=== PATIENT | male | born 1940 | race Caucasian/White ===

== ENCOUNTER 2017-06-17 19:08 | Inpatient (IN) | payer MEDICARE ==
[~2017-06-17] VITALS: Ht 180.3 cm; Wt 79.4 kg
[~2017-06-17 19:08] MED LIST: ATENOLOL PO; FINASTERIDE PO; HYDROCHLOROTHIA25 MG PO; PRIMIDONE PO; SIMVASTATIN PO; VALSARTAN PO; WARFARIN PO
[2017-06-17] MEDS ORDERED: ACETAMINOPHEN 325 MG TAB ONE (19:56)
[2017-06-17] MEDS ORDERED: ACETAMINOPHEN 325 MG TAB PO ONE (20:00)
[2017-06-17 20:28] LABS: BASOPHILS % 0.1 % (0.0-1.0); EOSINOPHILS % 0.1 % (0.0-6.0); HEMATOCRIT 45.1 % (38.2-49.6); HEMOGLOBIN 14.9 g/dL (14.0-18.0); LYMPHOCYTES # (AUTO) 0.2 (1.0-3.2); LYMPHOCYTES % 2.9 % (18.0-39.1); MEAN CORPUSCULAR HEMOGLOBIN 29.7 pg (28-32); MONOCYTES # (AUTO) 0.4 (0.2-0.8); MONOCYTES % 5.2 % (4.4-11.3); NEUTROPHILS # (AUTO) 6.5 (2.1-6.9); NEUTROPHILS % 91.3 % (38.7-80.0); PLATELET COUNT 108 x10e3/uL (140-360); RED BLOOD COUNT 5.01 x10e6/uL (4.3-5.7); RED CELL DISTRIBUTION WIDTH 14.6 % (11.7-14.4)
[2017-06-17 20:29] LABS: CLARITY,URINE CLEAR (CLEAR); COLOR,URINE YELLOW (YELLOW); KETONES,URINE NEGATIVE (NEGATIVE); LEUKOCYTE ESTERASE ,URINE NEGATIVE (NEGATIVE); NITRITE,URINE NEGATIVE (NEGATIVE); URINE UROBILINOGEN 1 mg/dL (0.2 - 1)
[2017-06-17 20:31] LABS: BILIRUBIN,URINE 1+ (NEGATIVE); PROTEIN,URINE DIPSTICK 1+ (NEGATIVE)
[2017-06-17 20:35] LABS: BACTERIA,URINE RARE /HPF; MUCUS,URINE FEW (RARE); WBC,URINE (MAN) 0-5 /HPF (0-5)
[2017-06-17] MEDS ORDERED: SODIUM CHLORIDE 0.9% 1000ML 1,000 ML IV ONE (20:45)
[2017-06-17 20:47] LABS: ALANINE AMINOTRANSFERASE 28 IU/L (0-55); ALBUMIN 3.9 g/dL (3.5-5.0); ALBUMIN/GLOBULIN RATIO 1.1 (0.8-2.0); ALKALINE PHOSPHATASE 53 IU/L (40-150); AMYLASE 269 U/L (25-125); ANION GAP 14.8 mmol/L (8-16); BLOOD UREA NITROGEN 24 mg/dL (7-26); BUN/CREATININE RATIO 26 (6-25); CALCIUM 9.2 mg/dL (8.4-10.2); CARBON DIOXIDE 34 mmol/L (22-29); CHLORIDE 96 mmol/L (98-107); CREATINE KINASE 175 IU/L (30-200); CREATININE, SERUM 0.91 mg/dL (0.72-1.25); EST GLOMERULAR FILTRATION RATE > 60 ML/MIN (60-); GLUCOSE 156 mg/dL (74-118); LIPASE 413 U/L (8-78); POTASSIUM 3.8 mmol/L (3.5-5.1); SODIUM 141 mmol/L (136-145)
--- NOTE | 2017-06-17 20:50 | Diagnostic Imaging Report ---
EXAMINATION: PA and lateral views of the chest. COMPARISON: None CLINICAL HISTORY: Vomiting, weakness, shortness of breath DISCUSSION: Lines/tubes: Single lead left upper chest cardiac device, with the distal tip projecting in the right ventricle Lungs: Lungs are well inflated. Eventration of the left hemidiaphragm. Bilateral mild central interstitial opacities extending from the prem. Left lower lobe airspace opacity. Pleura: Blunting of the right lateral and posterior as well as left posterior costophrenic sulci. Heart and mediastinum: Enlarged cardiac silhouette Central pulmonary venous congestion Bones and soft tissues: No acute bony abnormalities. Degenerative changes in the thoracic spine IMPRESSION: 1. Enlarged cardiac silhouette with central pulmonary venous congestion and mild perihilar interstitial edema. Findings likely represent decompensated CHF. 2. Bilateral small pleural effusions. An airspace opacity in the left lower lobe may reflect associated atelectasis, which may be due to the effusion or the diaphragmatic eventration, however, pneumonia could be considered in the appropriate clinical setting. Signed by: Dr. Aidan Pascal M.D. on 06/17/2017 8:47 PM
[2017-06-17 20:54] LABS: TROPONIN I 0.038 ng/mL (0-0.300)
[2017-06-17] MEDS ORDERED: CEFTRIAXONE SOD 1 GM VIAL IV STA (20:55)
[2017-06-17] MEDS ORDERED: AZITHROMYCIN 500MG/NS 250 ML 250 ML IV STA (20:55)
[2017-06-17 21:21] LABS: HYPOCHROMASIA SLIGHT; LYMPHOCYTES % (MANUAL) 3 % (19-48); MONOCYTES % (MANUAL) 6 % (3.4-9.0); NEUTROPHILS % (MANUAL) 91 % (40-74); PLATELET ESTIMATE SLIGHTLY DECREASED; RBC MORPHOLOGY COMMENT NORMAL
--- NOTE | 2017-06-17 21:54 | Diagnostic Imaging Report ---
EXAM: CT CHEST WO DATE: 06/17/2017 8:53 PM INDICATION: Evaluate chest x-ray findings, pneumonia COMPARISON: None TECHNIQUE: Multidetector CT scanning of the chest was performed. Coronal and sagittal multiplanar reformations were obtained. IV Contrast: None FINDINGS: LUNGS AND PLEURA: Calcified right basilar pleural thickening, which may be sequelae of asbestos or prior hemothorax/empyema. Mild bibasilar atelectasis/scarring. Nonspecific 3 mm right lower lobe nodule on image 79. HEART, MEDIASTINUM, VESSELS: Cardiomegaly. Intact sternotomy wires. Left chest wall single lead right ventricular pacer. Coronary artery and aortic atherosclerotic calcifications. Main pulmonary artery is enlarged, 3.6 cm indicative of pulmonary arterial hypertension. No suspicious adenopathy. UPPER ABDOMEN: Mildly dilated fluid-filled esophagus with marked diffuse wall thickening of the mid to distal portion. Partially imaged bilateral renal cystic lesions, incompletely characterized. Prominent perisplenic vessels or varices, poorly assessed without IV contrast. MUSCULOSKELETAL: Multilevel degenerative changes. IMPRESSION: 1. No evidence of pneumonia. 2. Marked mid to distal esophageal wall thickening which may be related to esophagitis. Correlate with direct visualization to exclude neoplasm. Signed by: Dr Rosalie Clifford MD on 06/17/2017 9:50 PM
--- NOTE | 2017-06-18 01:10 | Diagnostic Imaging Report ---
EXAM: US GALLBLADDER DATE: 06/18/2017 12:00 AM INDICATION: , Abdominal pain COMPARISON: None TECHNIQUE: Transverse and longitudinal gardner scale and color doppler sonographic images of the upper abdomen/gallbladder were obtained. FINDINGS: LIVER 16.8 cm in the right midclavicular line, borderline enlarged. Normal echogenicity, normal contour, no masses. GALLBLADDER No stones, sludge, wall-thickening or pericholecystic fluid. Negative sonographic Lott's sign. BILE DUCTS No intra nor extra-hepatic biliary dilation. Common bile duct measures 0.5 cm PANCREAS: Not visualized due to bowel gas. RIGHT KIDNEY: 11.0 cm Echogenicity: Normal Collecting System: No hydronephrosis Stones: None Cyst/Mass: None VESSELS: Aorta: Not visualized due to bowel gas Inferior Vena Cava: Visualized portions are normal Main Portal Vein: 1.0 cm, normal size with hepatopetal flow. FREE FLUID: None IMPRESSION: No acute sonographic abnormality. No cholelithiasis or evidence of acute cholecystitis. Signed by: Dr Rosalie Clifford MD on 06/18/2017 1:06 AM
[2017-06-18] MEDS ORDERED: ONDANSETRON HCL INJ 2 MG/ML VIAL IV PRN (01:30)
[2017-06-18] MEDS ORDERED: PIPER-TAZ 3.375 GM/50 ML BAG IV SCH (01:30)
[2017-06-18] MEDS ORDERED: HYDROMORPHONE 1MG/1ML INJ IV PRN (01:30)
[2017-06-18] MEDS: SODIUM CHLORIDE 0.9% 1000ML 1,000 ML IV SCH ×4 (02:20→16:51)
[2017-06-18] MEDS: METRONIDAZOLE 500MG/NS 100ML 100 ML IV SCH ×4 (02:20→18:00)
[2017-06-18] MEDS ORDERED: ACETAMINOPHEN 325 MG TAB PO PRN (02:30)
--- NOTE | 2017-06-18 02:47 | Diagnostic Imaging Report ---
EXAM: CT ABDOMEN/PELVIS W DATE: 06/18/2017 1:30 AM INDICATION: Nausea, vomiting. \S\PANCREATITIS PROTOCOL \[id number] \S\0204 \S\Y COMPARISON: Recent CT chest 06/17/2013, ultrasound gallbladder 06/18/2017 TECHNIQUE: The abdomen and pelvis were scanned using a multidetector helical scanner. Coronal and sagittal reformations were obtained. Routine protocol performed. IV Contrast: 100. ml Isovue 370 FINDINGS: LOWER THORAX: See chest CT from 06/17/2017. LIVER/BILIARY: No masses. No ductal dilatation. GALLBLADDER: Unremarkable. Normal same-day ultrasound gallbladder. SPLEEN: Unremarkable PANCREAS: Questionable 4 to 5 mm cystic lesion (side branch IPMN) of the pancreatic tail on coronal image 50 but no delineated on axial view. Otherwise no masses, ductal dilation or inflammatory changes. ADRENALS: No nodules KIDNEYS: Symmetric perfusion. Multiple bilateral renal cysts. No hydronephrosis. GI TRACT: No distention, wall thickening or evidence of obstruction. 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 PERITONEUM/RETROPERITONEUM: No free air or fluid LYMPH NODES: No lymphadenopathy REPRODUCTIVE ORGANS/BLADDER: Unremarkable SOFT TISSUES: Small fat-containing direct left inguinal hernia. BONES: Multilevel degenerative changes. Several subtle lucent areas within the ribs without cortical destruction, possibly demineralization. IMPRESSION: 1. No evidence of pancreatitis or other acute abnormality. 2. Severe atherosclerotic changes with bilateral common iliac artery aneurysms/dissections. Signed by: Dr Rosalie Clifford MD on 06/18/2017 2:43 AM
[2017-06-18] MEDS ORDERED: SODIUM CHLORIDE 0.9% 50ML 50 ML ONE (03:22)
[2017-06-18] MEDS ORDERED: IOPAMIDOL 370 MG/ML 200 ML INFUS..BTL INJ ONE (03:22)
[2017-06-18 03:49] VITALS: BP 133/71
[2017-06-18] MEDS ORDERED: GUAIFENESIN 200 MG/10 ML UDC PO ONE ×2 (04:15→04:30)
[2017-06-18 04:59] VITALS: BP 124/64
[2017-06-18] MEDS: PIPER-TAZ 3.375 GM 50 ML IV SCH ×3 (05:23→22:19)
[2017-06-18 07:50] VITALS: BP 135/75
[2017-06-18] MEDS: PRIMIDONE 50 MG TAB PO SCH (08:56)
[2017-06-18] MEDS: ATENOLOL 50 MG TAB PO SCH (08:56)
[2017-06-18] MEDS: VALSARTAN 160 MG TAB PO SCH (08:56)
--- NOTE | 2017-06-18 11:30 | History and Physical ---
CLINICAL HISTORY: This is a 77-year-old white man admitted via the emergency room because of nausea and vomiting of 24-hour duration with workup showing possible recurrent esophageal stricture and possible pancreatitis with lipase of 413 and elevated amylase of 269. This patient has been previously seen by Dr. Valentino Qiu because of esophageal stricture dating back to 2016. Has history of colonic polyps, internal hemorrhoids. He has history of pacemaker but no other previous heart disease. CT scan of the abdomen did not show pancreatitis, but did show atherosclerotic peripheral vascular disease. Ultrasound of gallbladder was negative. White count was 7000. He is being admitted for further evaluation and treatment. PAST MEDICAL HISTORY: Is otherwise noncontributory. He does have hypertension, hypercholesterolemia and benign prostatic hypertrophy. MEDICATIONS AT HOME: Include 1. Hydrochlorothiazide 12.5 mg p.o. daily. 2. Atenolol 25 mg daily. 3. Finasteride 5 mg daily. 4. Primidone 25 mg daily for shakes. 5. Simvastatin 20 mg daily. 6. Valsartan 160 mg daily. 7. Coumadin 7.5 mg p.o. daily. It is not clear whether he has history of atrial fibrillation. No EKG is available. PERSONAL AND SOCIAL HISTORY: Denies smoking, drinking. 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 FAMILY HISTORY: Mother from old age at 88. Father from coronary artery disease at 63. REVIEW OF SYSTEMS: Noncontributory. PHYSICAL EXAMINATION GENERAL: He is alert, coherent. Speech is somewhat slow. VITAL SIGNS: Are stable. CARDIAC: Jugular veins are not distended. S1 and S2 are regular. There is no appreciable murmur. LUNGS: Clear. ABDOMEN: Soft. Bowel sounds are present. EXTREMITIES: Show no clubbing, cyanosis or edema. IMPRESSION 1. Nausea and vomiting of undetermined etiology. Consider esophageal stricture with a recurrent computerized tomography that did show thickening of this area, but did not show any pancreatitis. 2. Possible pancreatitis with increased amylase, lipase in the range of 269 and 413 respectively. 3. History of pacemaker. 4. Atherosclerotic vascular disease by computerized tomography scan. 5. Hypertension. 6. Hyperlipidemia. 7. Benign prostatic hypertrophy. 8. Anticoagulation possible for atrial fibrillation. 9. Chronic shaking that is possibly due to Parkinson's. RECOMMENDATIONS: Review EKG. Consider echocardiogram prior to GI evaluation with Dr. Valentino Qiu. Withhold Coumadin for the time being. Job#: [id number] cc:TREVIN LEE MD cc:VALENTINO QIU MD
[2017-06-18 12:00] VITALS: BP 139/70
[2017-06-18 15:29] LABS: AMYLASE 54 U/L (25-125); LIPASE 18 U/L (8-78)
[2017-06-18 16:52] VITALS: BP 147/75
[2017-06-18] MEDS ORDERED: WARFARIN SOD 2.5 MG TAB PO SCH (17:00)
--- NOTE | 2017-06-18 19:15 | Cardiology Report ---
DATE OF STUDY: June 18, 2017 ECHOCARDIOGRAM M-MODE: Left ventricular contractility and left ventricular hypertrophy dominated the left atrium. Aortic sclerosis. Sclerosis of mitral valve leaflet. Normal tricuspid valves. No pericardial effusion. SECTOR SCAN: Dilated left atrium. Left ventricular hypertrophy. Normal ejection fraction estimated at 65%. Aortic valve is mildly sclerotic. Mitral annulus is slightly sclerotic. Normal tricuspid valves. No pericardial effusion. CARDIAC DOPPLER STUDY WITH COLOR: One to 2+ mitral and tricuspid regurgitation. Pulmonary artery systolic pressure estimated at 51 mmHg. CONCLUSIONS: 1. Left ventricular hypertrophy with ejection fraction of approximately 65%. 2. Mild to moderate mitral regurgitation with dilated left atrium. 3. Mild to moderate tricuspid regurgitation with mild pulmonary hypertension. Pulmonary artery systolic pressure estimated at 51 mmHg. 4. Aortic sclerosis without stenosis. 5. Pacemaker present. Job#: [id number] cc:TREVIN LEE MD
[2017-06-18 20:00] VITALS: BP 131/77
[2017-06-18] MEDS: SIMVASTATIN 20 MG TAB PO SCH (22:19)
[2017-06-18] MEDS: FINASTERIDE 5 MG TAB PO SCH (22:19)
[2017-06-19] VITALS: BP 153/86
[2017-06-19] MEDS: METRONIDAZOLE 500MG/NS 100ML 100 ML IV SCH ×4 (00:25→17:02)
[2017-06-19] MEDS: SODIUM CHLORIDE 0.9% 1000ML 1,000 ML IV SCH ×3 (00:25→17:02)
[2017-06-19] MEDS: PIPER-TAZ 3.375 GM 50 ML IV SCH ×3 (06:00→23:00)
[2017-06-19 06:54] LABS: BASOPHILS % 0.5 % (0.0-1.0); HEMATOCRIT 40.8 % (38.2-49.6); HEMOGLOBIN 13.2 g/dL (14.0-18.0); LYMPHOCYTES # (AUTO) 0.6 (1.0-3.2); LYMPHOCYTES % 15.9 % (18.0-39.1); MEAN CORPUSCULAR HEMOGLOBIN 29.3 pg (28-32); MEAN CORPUSCULAR HGB CONC 32.4 g/dL (31-35); MEAN CORPUSCULAR VOLUME 90.5 fL (81-99); MONOCYTES # (AUTO) 0.4 (0.2-0.8); MONOCYTES % 10.4 % (4.4-11.3); NEUTROPHILS # (AUTO) 2.9 (2.1-6.9); NEUTROPHILS % 72.5 % (38.7-80.0); PLATELET COUNT 76 x10e3/uL (140-360); RED BLOOD COUNT 4.51 x10e6/uL (4.3-5.7); RED CELL DISTRIBUTION WIDTH 14.6 % (11.7-14.4)
[2017-06-19 07:30] LABS: ALANINE AMINOTRANSFERASE 33 IU/L (0-55); ALBUMIN/GLOBULIN RATIO 1.1 (0.8-2.0); ALKALINE PHOSPHATASE 34 IU/L (40-150); AMYLASE 90 U/L (25-125); ANION GAP 12.3 mmol/L (8-16); BLOOD UREA NITROGEN 20 mg/dL (7-26); BUN/CREATININE RATIO 21 (6-25); CALCIUM 8.1 mg/dL (8.4-10.2); CARBON DIOXIDE 28 mmol/L (22-29); CHLORIDE 103 mmol/L (98-107); CREATININE, SERUM 0.97 mg/dL (0.72-1.25); EST GLOMERULAR FILTRATION RATE > 60 ML/MIN (60-); GLUCOSE 97 mg/dL (74-118); LIPASE 87 U/L (8-78); POTASSIUM 3.3 mmol/L (3.5-5.1); SODIUM 140 mmol/L (136-145)
[2017-06-19 07:54] VITALS: BP 144/66
[2017-06-19] MEDS: PRIMIDONE 50 MG TAB PO SCH (09:00)
[2017-06-19] MEDS: VALSARTAN 160 MG TAB PO SCH (09:00)
[2017-06-19] MEDS: ATENOLOL 50 MG TAB PO SCH (09:00)
[2017-06-19 11:19] VITALS: BP 168/83
[2017-06-19 13:11] LABS: INR 8.58
[2017-06-19 13:12] LABS: PROTHROMBIN TIME > 100.0 seconds (11.9-14.5)
[2017-06-19] MEDS ORDERED: POTASSIUM CHLORIDE 20 MEQ TAB CR PO STA (15:32)
[2017-06-19 16:00] VITALS: BP 144/84
[2017-06-19 20:00] VITALS: BP 155/71
[2017-06-19] MEDS: SIMVASTATIN 20 MG TAB PO SCH (22:59)
[2017-06-19] MEDS: FINASTERIDE 5 MG TAB PO SCH (22:59)
[2017-06-20] VITALS: BP 144/74
[2017-06-20] MEDS: METRONIDAZOLE 500MG/NS 100ML 100 ML IV SCH ×4 (00:45→18:15)
[2017-06-20] MEDS: SODIUM CHLORIDE 0.9% 1000ML 1,000 ML IV SCH ×3 (00:51→16:51)
[2017-06-20 04:00] VITALS: BP 155/78
[2017-06-20] MEDS: PIPER-TAZ 3.375 GM 50 ML IV SCH ×3 (05:31→22:01)
[2017-06-20 07:45] LABS: INR 5.24
[2017-06-20 07:54] VITALS: BP 163/87
[2017-06-20] MEDS: VALSARTAN 160 MG TAB PO SCH (09:24)
[2017-06-20] MEDS: PRIMIDONE 50 MG TAB PO SCH (09:24)
[2017-06-20] MEDS: ATENOLOL 50 MG TAB PO SCH (09:25)
[2017-06-20 11:47] VITALS: BP 149/88
--- NOTE | 2017-06-20 12:31 | Consultation ---
DATE OF CONSULTATION: HEMATOLOGY CONSULTATION A 77-year-old white male admitted to [facility] through the emergency room because of nausea, vomiting and diarrhea. At the time of interview, the patient's symptoms resolved. He was also evaluated by Dr. Valentino Eden. Patient did have a history of esophageal stricture, but it appears not to be the case at this time. CT scan of his chest did show some esophageal thickening. He is not being scoped by Dr. Eden because of an elevated INRI, and now today still at 8. The Coumadin is currently on hold of course. PAST MEDICAL HISTORY: As per history and physical by Dr. Daniel Malik. This includes hypertension, benign prostatic hypertrophy, esophageal stricture, pacemaker insertion, questionable history of atrial fibrillation, etc. PHYSICAL EXAMINATION GENERAL: Reveals an elderly white man who seems alert and cooperative. VITAL SIGNS: Stable. HEENT: Unremarkable. Hair is unkempt. NECK: Supple. No JVD. CHEST: Lungs clear. HEART: Sounds distant. ABDOMEN: Soft. NEUROLOGICAL: Normal. EXTREMITIES: No cyanosis, clubbing or edema. LABORATORY: Platelet count today is 76,000. CT of the abdomen showed no evidence of cirrhosis. Normal liver. Gallbladder ultrasound was normal. ASSESSMENT AND PLAN: Thrombocytopenia, etiology unclear at this time. Patient might have chronic idiopathic thrombocytopenia purpura. Since there is no evidence of bleeding, will observe him for now, and see if we can get a hold of old records from his primary care physician or from other hospital. Thank you very much, Dr. Malik, for asking me to see this gentleman. I will follow him with you. Job#: [id number] JEANETTE ROD
[2017-06-20 15:53] VITALS: BP 181/93
[2017-06-20] MEDS ORDERED: ZOLPIDEM TARTRATE 5 MG TAB PO PRN (17:45)
[2017-06-20] MEDS ORDERED: MAGNESIUM HYDROXIDE 30 ML UDC PO PRN (17:45)
[2017-06-20] MEDS ORDERED: MAGNESIUM/ALUMINUM/SIMETHICONE 30 ML UDC PO PRN (17:45)
[2017-06-20] MEDS ORDERED: MECLIZINE HCL 12.5 MG TAB PO PRN (17:45)
[2017-06-20] MEDS: CLONIDINE HCL 0.1 MG TAB PO PRN (18:10)
[2017-06-20 19:15] VITALS: BP 171/87
[2017-06-20] MEDS: FINASTERIDE 5 MG TAB PO SCH (20:50)
[2017-06-20] MEDS: SIMVASTATIN 20 MG TAB PO SCH (20:50)
[2017-06-21 00:05] VITALS: BP 199/95
[2017-06-21] MEDS: CLONIDINE HCL 0.1 MG TAB PO PRN ×3 (00:17→11:45)
[2017-06-21] MEDS: METRONIDAZOLE 500MG/NS 100ML 100 ML IV SCH ×4 (00:27→17:45)
[2017-06-21] MEDS: SODIUM CHLORIDE 0.9% 1000ML 1,000 ML IV SCH ×3 (00:51→08:51)
[2017-06-21] MEDS ORDERED: ATENOLOL 50 MG TAB PO ONE (04:00)
[2017-06-21 05:00] VITALS: BP 196/91
[2017-06-21] MEDS: PIPER-TAZ 3.375 GM 50 ML IV SCH ×3 (06:00→21:13)
[2017-06-21 07:34] LABS: BASOPHILS % 0.2 % (0.0-1.0); EOSINOPHILS # (AUTO) 0.1 (0.0-0.4); EOSINOPHILS % 1.3 % (0.0-6.0); HEMATOCRIT 39.5 % (38.2-49.6); HEMOGLOBIN 12.9 g/dL (14.0-18.0); LYMPHOCYTES # (AUTO) 0.8 (1.0-3.2); LYMPHOCYTES % 17.4 % (18.0-39.1); MEAN CORPUSCULAR HEMOGLOBIN 29.7 pg (28-32); MEAN CORPUSCULAR HGB CONC 32.7 g/dL (31-35); MONOCYTES # (AUTO) 0.4 (0.2-0.8); MONOCYTES % 7.8 % (4.4-11.3); NEUTROPHILS # (AUTO) 3.5 (2.1-6.9); NEUTROPHILS % 72.7 % (38.7-80.0); PLATELET COUNT 87 x10e3/uL (140-360); RED BLOOD COUNT 4.34 x10e6/uL (4.3-5.7); RED CELL DISTRIBUTION WIDTH 14.8 % (11.7-14.4)
[2017-06-21 07:42] VITALS: BP 197/93
[2017-06-21 08:04] LABS: AMYLASE 37 U/L (25-125); LIPASE 21 U/L (8-78)
[2017-06-21] MEDS: VALSARTAN 160 MG TAB PO SCH (08:17)
[2017-06-21] MEDS: PRIMIDONE 50 MG TAB PO SCH (08:17)
[2017-06-21] MEDS: ATENOLOL 50 MG TAB PO SCH ×2 (08:18→17:27)
[2017-06-21 08:49] LABS: INR 1.68; PROTHROMBIN TIME 20.7 seconds (11.9-14.5)
[2017-06-21] MEDS ORDERED: ATENOLOL 50 MG TAB PO SCH (09:00)
[2017-06-21 12:04] VITALS: BP 188/96
[2017-06-21] MEDS ORDERED: POTASSIUM CHLORIDE 10 MEQ TABCR PO ONE (14:30)
[2017-06-21 15:59] VITALS: BP 176/87
--- NOTE | 2017-06-21 19:09 | Diagnostic Imaging Report ---
EXAMINATION: Chest, CHEST 2 VIEWS INDICATION: Shortness of breath. COMPARISON: Chest 2 views 06/17/2017 FINDINGS: LINES: Left chest cardiac device with lead projecting over the expected region of the right ventricle. Heart: Normal cardiac silhouette. Vascular: The pulmonary vasculature is within normal limits. Atherosclerotic calcifications of the aortic arch. Mediastinum: No mediastinal, hilar, or axillary mass or lymphadenopathy. Lungs: No parenchymal mass. Bilateral multifocal airspace opacities. Pleura: Small right pleural effusion. Stable elevation of the left hemidiaphragm. No pneumothorax. Bones: No acute osseous abnormality. Degenerative changes of the thoracic spine. Median sternotomy wires. Soft tissues: Normal. Impression: Bilateral multifocal airspace opacifications may represent a developing pneumonia. Signed by: Dr. Ernie Stout M.D. on 06/21/2017 7:05 PM
[2017-06-21 20:00] VITALS: BP 176/89
[2017-06-21] MEDS: SIMVASTATIN 20 MG TAB PO SCH (21:13)
[2017-06-21] MEDS: FINASTERIDE 5 MG TAB PO SCH (21:13)
[2017-06-22] VITALS: BP 193/95
[2017-06-22] MEDS: CLONIDINE HCL 0.1 MG TAB PO PRN ×2 (00:14→12:20)
[2017-06-22] MEDS: GUAIFENESIN 200 MG/10 ML UDC PO PRN (00:14)
[2017-06-22] MEDS: METRONIDAZOLE 500MG/NS 100ML 100 ML IV SCH ×4 (00:15→18:06)
[2017-06-22 04:00] VITALS: BP 164/81
[2017-06-22] MEDS: PIPER-TAZ 3.375 GM 50 ML IV SCH ×3 (05:56→21:23)
[2017-06-22 07:37] VITALS: BP 174/95
[2017-06-22 07:37] LABS: BASOPHILS % 0.2 % (0.0-1.0); HEMATOCRIT 37.5 % (38.2-49.6); HEMOGLOBIN 11.9 g/dL (14.0-18.0); LYMPHOCYTES # (AUTO) 0.7 (1.0-3.2); LYMPHOCYTES % 14.1 % (18.0-39.1); MEAN CORPUSCULAR HEMOGLOBIN 29.4 pg (28-32); MEAN CORPUSCULAR HGB CONC 31.7 g/dL (31-35); MEAN CORPUSCULAR VOLUME 92.6 fL (81-99); MONOCYTES # (AUTO) 0.5 (0.2-0.8); MONOCYTES % 9.2 % (4.4-11.3); NEUTROPHILS # (AUTO) 3.7 (2.1-6.9); NEUTROPHILS % 75.5 % (38.7-80.0); PLATELET COUNT 82 x10e3/uL (140-360); RED BLOOD COUNT 4.05 x10e6/uL (4.3-5.7); RED CELL DISTRIBUTION WIDTH 14.8 % (11.7-14.4)
[2017-06-22] MEDS: PANTOPRAZOLE SOD 40 MG TABEC PO SCH (07:54)
[2017-06-22 08:13] LABS: INR 1.33; PROTHROMBIN TIME 17.2 seconds (11.9-14.5)
[2017-06-22] MEDS: VALSARTAN 160 MG TAB PO SCH (09:19)
[2017-06-22] MEDS: PRIMIDONE 50 MG TAB PO SCH (09:19)
[2017-06-22] MEDS: ATENOLOL 50 MG TAB PO SCH ×2 (09:19→17:30)
[2017-06-22 12:07] VITALS: BP 170/93
[2017-06-22] MEDS ORDERED: FUROSEMIDE INJ 10 MG/ML 4 ML VIAL IV ONE (15:00)
[2017-06-22] MEDS: ALBUTEROL/IPRATROPIUM 3 ML NEB NEB PRN ×3 (15:55→23:45)
[2017-06-22 15:57] VITALS: BP 179/84
[2017-06-22 20:00] VITALS: BP 154/84
[2017-06-22] MEDS: SIMVASTATIN 20 MG TAB PO SCH (21:23)
[2017-06-22] MEDS: FINASTERIDE 5 MG TAB PO SCH (21:23)
[2017-06-23] VITALS: BP 162/94
[2017-06-23 04:00] VITALS: BP 177/98
[2017-06-23] MEDS: METRONIDAZOLE 500MG/NS 100ML 100 ML IV SCH ×5 (04:37→23:53)
[2017-06-23] MEDS: PIPER-TAZ 3.375 GM 50 ML IV SCH ×3 (05:11→22:40)
[2017-06-23 06:14] VITALS: BP 168/80
[2017-06-23] MEDS: ALBUTEROL/IPRATROPIUM 3 ML NEB NEB PRN (06:50)
[2017-06-23 07:16] LABS: BASOPHILS % 0.2 % (0.0-1.0); HEMATOCRIT 35.4 % (38.2-49.6); HEMOGLOBIN 11.3 g/dL (14.0-18.0); LYMPHOCYTES # (AUTO) 0.7 (1.0-3.2); LYMPHOCYTES % 16.1 % (18.0-39.1); MEAN CORPUSCULAR HEMOGLOBIN 29.4 pg (28-32); MEAN CORPUSCULAR HGB CONC 31.9 g/dL (31-35); MEAN CORPUSCULAR VOLUME 92.2 fL (81-99); MONOCYTES # (AUTO) 0.5 (0.2-0.8); MONOCYTES % 11.3 % (4.4-11.3); NEUTROPHILS # (AUTO) 3.3 (2.1-6.9); NEUTROPHILS % 71.7 % (38.7-80.0); PLATELET COUNT 76 x10e3/uL (140-360); RED BLOOD COUNT 3.84 x10e6/uL (4.3-5.7); RED CELL DISTRIBUTION WIDTH 14.7 % (11.7-14.4)
[2017-06-23] MEDS: PANTOPRAZOLE SOD 40 MG TABEC PO SCH (07:30)
[2017-06-23 07:37] LABS: INR 1.25; PROTHROMBIN TIME 16.4 seconds (11.9-14.5)
[2017-06-23 07:48] LABS: ANION GAP 11.6 mmol/L (8-16); BLOOD UREA NITROGEN 19 mg/dL (7-26); BUN/CREATININE RATIO 22 (6-25); CALCIUM 8.6 mg/dL (8.4-10.2); CARBON DIOXIDE 33 mmol/L (22-29); CHLORIDE 107 mmol/L (98-107); CREATININE, SERUM 0.88 mg/dL (0.72-1.25); EST GLOMERULAR FILTRATION RATE > 60 ML/MIN (60-); GLUCOSE 112 mg/dL (74-118); POTASSIUM 3.6 mmol/L (3.5-5.1); SODIUM 148 mmol/L (136-145)
[2017-06-23 08:00] VITALS: BP 148/76
[2017-06-23] MEDS: PRIMIDONE 50 MG TAB PO SCH (09:00)
[2017-06-23] MEDS: ATENOLOL 50 MG TAB PO SCH ×2 (09:30→17:30)
[2017-06-23] MEDS: VALSARTAN 160 MG TAB PO SCH (09:30)
[2017-06-23] MEDS ORDERED: POTASSIUM CHLORIDE 20 MEQ TAB CR PO STA (10:06)
[2017-06-23] MEDS ORDERED: FUROSEMIDE INJ 10 MG/ML 2 ML VIAL IV ONE (10:15)
[2017-06-23 12:00] VITALS: BP 149/76
[2017-06-23 16:00] VITALS: BP 157/92
[2017-06-23] MEDS ORDERED: LIDOCAINE HCL 2% LOCAL INJ 5 ML SDV VIAL INJ ONE (18:26)
[2017-06-23] MEDS ORDERED: PROPOFOL IV EMULSION 10 MG/ML 50 ML VIAL ONE (18:26)
[2017-06-23] MEDS ORDERED: MIDAZOLAM HCL 2 MG/2 ML VIAL ONE (18:45)
[2017-06-23] MEDS ORDERED: FENTANYL CITRATE/PF 100MCG/2 ML INJ ONE (18:45)
--- NOTE | 2017-06-23 20:48 | Operative Report ---
DATE OF PROCEDURE: June 23, 2017 REFERRING PHYSICIAN: Dr. Daniel Malik. PROCEDURE PERFORMED: Esophagogastroduodenoscopy with biopsy. INDICATIONS FOR PROCEDURE: Thickened esophagus on CT scan. MEDICATION: Patient was done under MAC. Please see anesthesiologist's note. PROCEDURE: With the patient in left lateral decubitus position, flexible fiberoptic Olympus gastroscope was introduced into the esophagus under direct visualization without any difficulty. There was some focal varicosities noted in the cervical esophagus. The distal esophagus simply revealed there was some patchy erythema noted. The scope was then advanced with ease into the stomach and mucosa overlying the antrum and the body revealed some patchy intense erythema and low-grade to moderate edema and biopsies were obtained and sent to stain for H. pylori. Pylorus appeared to be of normal contour and shape. Was intubated with ease and scope was advanced all the way to the 2nd portion of the duodenum. The scope was then withdrawn slowly. Mucosa overlying the proximal 2nd portion and the duodenal bulb appeared to be within normal limits. The scope was then withdrawn back into the stomach and retroflexed and mucosa overlying the fundus and the cardia appeared to be within normal limits. The scope was then straightened out. Stomach was decompressed. The scope was subsequently withdrawn. Patient tolerated the procedure well. IMPRESSION: 1. Focal varicosities, cervical esophagus. 2. Mild distal esophagitis. 3. Gastritis biopsied. Biopsy sent to stain for H. pylori. PLAN: Follow up histology. Initiate Protonix 40 mg 1 p.o. q.a.m. a.c Job#: [id number] cc:DANIEL MALIK MD
[2017-06-23] MEDS: SIMVASTATIN 20 MG TAB PO SCH (21:45)
[2017-06-23] MEDS: FINASTERIDE 5 MG TAB PO SCH (21:55)
[2017-06-24] VITALS (48 sets, daily range): BP systolic 103–161; BP diastolic 64–118
[2017-06-24] MEDS: METRONIDAZOLE 500MG/NS 100ML 100 ML IV SCH ×3 (06:05→19:06)
[2017-06-24 06:27] LABS: BASOPHILS % 0.5 % (0.0-1.0); EOSINOPHILS % 0.2 % (0.0-6.0); HEMATOCRIT 40.2 % (38.2-49.6); HEMOGLOBIN 12.6 g/dL (14.0-18.0); LYMPHOCYTES # (AUTO) 0.7 (1.0-3.2); LYMPHOCYTES % 10.8 % (18.0-39.1); MEAN CORPUSCULAR HEMOGLOBIN 29.9 pg (28-32); MEAN CORPUSCULAR HGB CONC 31.3 g/dL (31-35); MEAN CORPUSCULAR VOLUME 95.3 fL (81-99); MONOCYTES # (AUTO) 0.5 (0.2-0.8); NEUTROPHILS # (AUTO) 5.2 (2.1-6.9); NEUTROPHILS % 79.4 % (38.7-80.0); PLATELET COUNT 126 x10e3/uL (140-360); RED BLOOD COUNT 4.22 x10e6/uL (4.3-5.7); RED CELL DISTRIBUTION WIDTH 14.6 % (11.7-14.4)
[2017-06-24] MEDS: PIPER-TAZ 3.375 GM 50 ML IV SCH ×3 (06:43→21:23)
[2017-06-24] MEDS: PANTOPRAZOLE SOD 40 MG TABEC PO SCH (07:30)
[2017-06-24 07:56] LABS: BASOPHILS % 0.2 % (0.0-1.0); EOSINOPHILS % 0.2 % (0.0-6.0); HEMATOCRIT 39.6 % (38.2-49.6); HEMOGLOBIN 12.2 g/dL (14.0-18.0); LYMPHOCYTES # (AUTO) 0.6 (1.0-3.2); LYMPHOCYTES % 9.8 % (18.0-39.1); MEAN CORPUSCULAR HEMOGLOBIN 29.4 pg (28-32); MEAN CORPUSCULAR HGB CONC 30.8 g/dL (31-35); MEAN CORPUSCULAR VOLUME 95.4 fL (81-99); MONOCYTES # (AUTO) 0.5 (0.2-0.8); MONOCYTES % 8.6 % (4.4-11.3); NEUTROPHILS # (AUTO) 4.8 (2.1-6.9); NEUTROPHILS % 80.4 % (38.7-80.0); PLATELET COUNT 115 x10e3/uL (140-360); RED BLOOD COUNT 4.15 x10e6/uL (4.3-5.7); RED CELL DISTRIBUTION WIDTH 14.6 % (11.7-14.4)
[2017-06-24] MEDS: VALSARTAN 160 MG TAB PO SCH (09:00)
[2017-06-24] MEDS: ATENOLOL 50 MG TAB PO SCH ×2 (09:00→17:00)
[2017-06-24] MEDS: PRIMIDONE 50 MG TAB PO SCH (09:00)
[2017-06-24 09:57] LABS: INR 1.29; PROTHROMBIN TIME 16.8 seconds (11.9-14.5)
[2017-06-24 09:58] LABS: ALANINE AMINOTRANSFERASE 47 IU/L (0-55); ALBUMIN/GLOBULIN RATIO 0.9 (0.8-2.0); ALKALINE PHOSPHATASE 34 IU/L (40-150); ANION GAP 13.2 mmol/L (8-16); BLOOD UREA NITROGEN 22 mg/dL (7-26); BUN/CREATININE RATIO 25 (6-25); CALCIUM 9.1 mg/dL (8.4-10.2); CARBON DIOXIDE 36 mmol/L (22-29); CHLORIDE 104 mmol/L (98-107); CREATININE, SERUM 0.87 mg/dL (0.72-1.25); EST GLOMERULAR FILTRATION RATE > 60 ML/MIN (60-); GLUCOSE 138 mg/dL (74-118); POTASSIUM 4.2 mmol/L (3.5-5.1); SODIUM 149 mmol/L (136-145)
[2017-06-24] MEDS ORDERED: METOPROLOL TARTRATE INJ 1 MG/ML VIAL IV ONE (10:00)
[2017-06-24 10:07] LABS: PARTIAL THROMBOPLASTIN TIME 33.9 seconds (23.8-35.5)
[2017-06-24] MEDS ORDERED: FUROSEMIDE INJ 10 MG/ML 4 ML VIAL IV ONE (10:30)
[2017-06-24 10:46] LABS: ABG PCO2 98 mmHg (41-51); ABG PH 7.24 (7.31-7.41); ABG PO2 107 mmHg (80-105)
[2017-06-24 10:47] LABS: ABG HCO3 42 mmol/L (23-28)
[2017-06-24 12:32] LABS: ABG HCO3 43 mmol/L (23-28); ABG PCO2 96 mmHg (41-51); ABG PH 7.26 (7.31-7.41); ABG PO2 128 mmHg (80-105)
[2017-06-24] MEDS ORDERED: METHYLPREDNISOLONE SOD SUCC 125 MG/2ML VIAL IV SCH (14:00)
[2017-06-24] MEDS ORDERED: FUROSEMIDE INJ 10 MG/ML 2 ML VIAL IV SCH (14:00)
--- NOTE | 2017-06-24 15:07 | Consultation ---
DATE OF CONSULTATION: June 24, 2017 PULMONARY/CRITICAL CARE CONSULTATION CHIEF COMPLAINT: History of COPD and sleep apnea with worsening respiratory failure. HISTORY OF PRESENT ILLNESS: The patient is a 77-year-old man. He follows in the office for obstructive sleep apnea and COPD. His last pulmonary function tests were done in 2013, and showed moderate to severe obstructive lung disease. He uses Dulera at home, as well as a rescue inhaler and a nebulizer as needed. He also had CPAP at home, but the machine broke. Approximately 6 days ago, he came to the hospital complaining of nausea, vomiting and weakness. He was found to have an elevated amylase and lipase. His CT scan showed no pancreatic inflammation. He had subsequently improvement in his symptoms. Two 2 days ago he underwent an upper endoscopy with Dr. Eden. It showed esophagitis and gastritis. The patient also reports difficulty with breathing for the past 3-4 days. It became worse yesterday. An ABG was done and it was found to have an elevated carbon dioxide and a pH of 7.24. He was subsequent placed on BiPAP and transferred to the ICU. A chest x-ray showed bilateral infiltrates suggestive of aspiration. PAST SURGICAL HISTORY 1. Status post coronary artery bypass grafting. 2. Status post pacemaker placement. 3. Status post hiatal hernia surgery. PAST MEDICAL HISTORY 1. COPD as noted above. 2. Obstructive sleep apnea. 3. Hypertension. 4. Atrial fibrillation. The patient was on warfarin. Apparently, this was being monitored through Dr. Hutchinson's office. SOCIAL HISTORY: The patient quit smoking. He is not an active drinker. FAMILY HISTORY: Significant for heart disease, stroke and diabetes. Allergies: THE PATIENT IS ALLERGIC TO TETRACYCLINE. REVIEW OF SYSTEMS: There was a low-grade fever last night. The patient does not complain of any headache or neck pain. He does complain of being thirsty. He has no anterior chest pain. He does note congestion and some cough. Her reports feeling comfortable on the BiPAP without dyspnea. He has no abdominal pain. There is no active nausea or vomiting. He has some leg swelling, but this has improved. PHYSICAL EXAMINATION VITALS: The patient is afebrile. Temperature was 99.8 last night. He is on the BiPAP mask at this time. GENERAL: He has no facial swallowing. NECK: There is no pain. CARDIAC: Reveals a regular rate and rhythm with a normal S1 and S2. There are no murmurs or rubs. LUNGS: Auscultation of the lungs reveals some crackles and some decreased breath sounds. ABDOMEN: Soft and nontender. There is no rebound or guarding. EXTREMITIES: Shows 1+ leg edema. There is no calf tenderness. There is no cyanosis or clubbing. SKIN: Shows no rashes. NEUROLOGICAL: Shows the patient to have some bradykinesia and decreased spontaneous movements, but no focal abnormalities. He is alert and responds appropriately. IMPRESSION 1. [id number] hypercapnic respiratory failure. 2. Aspiration pneumonia with a risk for healthcare-acquired pathogens. 3. Obstructive sleep apnea. 4. Chronic obstructive pulmonary disease. 5. Resolving pancreatitis. 6. Gastritis and esophagitis. It is mild according to his endoscopy. 7. Prior history of coronary artery disease. 8. Prior history of hypertension. 9. History of atrial fibrillation. RECOMMENDATIONS 1. The BiPAP should be refitted because there is some air leak. The inspiratory pressure will be increased slightly as well. 2. Patient will receive Solu-Medrol along with aggressive bronchodilators. 3. Patient's antibiotics should be broaden to cover for healthcare-acquired pathogens. 4. Repeat cultures, including urine antigen for legionella. 5. Hold the Lasix because of the last recorded ejection fraction, and the patient is developing hypernatremia. Job#: [id number] JEANETTE
[2017-06-24] MEDS: LEVOFLOXACIN 500MG/D5W 100ML 100 ML IV SCH (15:43)
[2017-06-24] MEDS ORDERED: SODIUM CHLORIDE 0.9% 1000ML 1,000 ML IV PRN (15:45)
[2017-06-24 17:41] LABS: ABG HCO3 44 mmol/L (23-28); ABG PCO2 76 mmHg (41-51); ABG PH 7.37 (7.31-7.41); ABG PO2 140 mmHg (80-105)
[2017-06-24] MEDS ORDERED: ENOXAPARIN SOD INJ 60 MG/0.6 ML SYR SC SCH (21:00)
[2017-06-24] MEDS: FINASTERIDE 5 MG TAB PO SCH (21:23)
[2017-06-24] MEDS: ENOXAPARIN 30 MG/0.3 ML SYR SC SCH (21:23)
[2017-06-24] MEDS: METOPROLOL TARTRATE INJ 1 MG/ML VIAL IV PRN (21:23)
[2017-06-24] MEDS: SIMVASTATIN 20 MG TAB PO SCH (21:23)
[2017-06-24] MEDS: GUAIFENESIN 200 MG/10 ML UDC PO PRN (21:23)
[2017-06-25] VITALS (25 sets, daily range): BP systolic 91–159; BP diastolic 59–94
[2017-06-25] MEDS: METRONIDAZOLE 500MG/NS 100ML 100 ML IV SCH ×5 (00:54→23:10)
[2017-06-25 04:49] LABS: BASOPHILS % 0.2 % (0.0-1.0); HEMATOCRIT 37.4 % (38.2-49.6); HEMOGLOBIN 11.8 g/dL (14.0-18.0); LYMPHOCYTES # (AUTO) 0.6 (1.0-3.2); LYMPHOCYTES % 13.7 % (18.0-39.1); MEAN CORPUSCULAR HEMOGLOBIN 29.8 pg (28-32); MEAN CORPUSCULAR HGB CONC 31.6 g/dL (31-35); MEAN CORPUSCULAR VOLUME 94.4 fL (81-99); MONOCYTES # (AUTO) 0.5 (0.2-0.8); MONOCYTES % 10.9 % (4.4-11.3); NEUTROPHILS # (AUTO) 3.4 (2.1-6.9); NEUTROPHILS % 74.8 % (38.7-80.0); PLATELET COUNT 128 x10e3/uL (140-360); RED BLOOD COUNT 3.96 x10e6/uL (4.3-5.7); RED CELL DISTRIBUTION WIDTH 14.1 % (11.7-14.4)
[2017-06-25 04:58] LABS: INR 1.61
[2017-06-25 05:08] LABS: ALANINE AMINOTRANSFERASE 35 IU/L (0-55); ALBUMIN 2.6 g/dL (3.5-5.0); ALBUMIN/GLOBULIN RATIO 0.8 (0.8-2.0); ALKALINE PHOSPHATASE 28 IU/L (40-150); ANION GAP 9.9 mmol/L (8-16); BLOOD UREA NITROGEN 29 mg/dL (7-26); BUN/CREATININE RATIO 32 (6-25); CALCIUM 8.6 mg/dL (8.4-10.2); CARBON DIOXIDE 39 mmol/L (22-29); CHLORIDE 103 mmol/L (98-107); CREATININE, SERUM 0.92 mg/dL (0.72-1.25); EST GLOMERULAR FILTRATION RATE > 60 ML/MIN (60-); GLUCOSE 126 mg/dL (74-118); POTASSIUM 3.9 mmol/L (3.5-5.1); SODIUM 148 mmol/L (136-145)
--- NOTE | 2017-06-25 06:31 | Diagnostic Imaging Report ---
EXAM: CHEST 2 VIEWS, PA and lateral DATE: 06/24/2017 9:53 AM Time stamp on exam: O5 100 hours INDICATION: Fever, pancreatitis, nausea, shortness of breath COMPARISON: PA and lateral view of the chest June 21, 2017 FINDINGS: LINES/TUBES: Stable left approach single lead cardiac device. LUNGS: Interval increase in left pleural effusion. Trace right pleural effusion. PLEURA: Stable small bilateral pleural effusions. Stable calcified pleural plaques. HEART AND MEDIASTINUM: Stable enlargement of the cardiomediastinal silhouette. BONES AND SOFT TISSUES: No acute findings. IMPRESSION: Enlarging left pleural effusion, otherwise no significant interval change. Signed by: Dr. Hailee Meyer M.D. on 06/25/2017 6:28 AM
[2017-06-25] MEDS: PIPER-TAZ 3.375 GM 50 ML IV SCH ×3 (06:45→21:09)
[2017-06-25] MEDS: PANTOPRAZOLE SOD 40 MG TABEC PO SCH (07:30)
[2017-06-25] MEDS: VALSARTAN 160 MG TAB PO SCH (09:00)
[2017-06-25] MEDS: PRIMIDONE 50 MG TAB PO SCH (09:00)
[2017-06-25] MEDS: ENOXAPARIN 30 MG/0.3 ML SYR SC SCH ×2 (09:00→20:04)
[2017-06-25] MEDS: ATENOLOL 50 MG TAB PO SCH ×2 (09:00→17:00)
[2017-06-25] MEDS ORDERED: LACTULOSE SYRUP 20 GM/30 ML UDC PO PRN (10:45)
[2017-06-25] MEDS ORDERED: ACETAZOLAMIDE 500 MG CAP PO ONE (10:45)
[2017-06-25] MEDS ORDERED: DEXTROSE 5% 1000ML 1,000 ML IV ONE (10:45)
[2017-06-25] MEDS ORDERED: ACETAZOLAMIDE 250 MG TAB PO NR (11:15)
[2017-06-25] MEDS ORDERED: POTASSIUM CHLORIDE 20 MEQ TAB CR PO NR (11:30)
[2017-06-25] MEDS ORDERED: FUROSEMIDE INJ 10 MG/ML 2 ML VIAL IV ONE (11:45)
[2017-06-25] MEDS ORDERED: METOLAZONE 5 MG TAB PO ONE (11:45)
[2017-06-25] MEDS ORDERED: ATENOLOL 50 MG TAB PO ONE (11:45)
[2017-06-25] MEDS: LACTULOSE SYRUP 20 GM/30 ML UDC PO SCH ×2 (12:25→17:00)
[2017-06-25] MEDS: LEVOFLOXACIN 500MG/D5W 100ML 100 ML IV SCH (12:30)
--- NOTE | 2017-06-25 15:21 | Diagnostic Imaging Report ---
Ultrasound-guided Thoracentesis June 25, 2017 Pre-Procedure Diagnosis: Left pleural effusion Post-procedure Diagnosis:Left pleural effusion Dealer Card Room: Nathalie Gottlieb Extrusion Press Adjuster: None Sedation: None. 1% lidocaine local anesthesia. Estimate blood loss: <5 mL Blood administered: None Complications: None Implants/Grafts: None Specimen: 175 mL serosanguineous fluid. Procedure: Informed consent was obtained and the patient positioned in a sitting position in the ICU. A timeout was performed, followed by preliminary ultrasound of the chest. The back was prepped and draped in standard sterile fashion. Using real-time ultrasound guidance a 5-Peruvian one-step centesis needle was advanced into the left thoracic cavity. An image was stored in the electronic medical record. 175 mL serosanguineous fluid was aspirated. At the end of the procedure the catheter was removed and a sterile dressing applied. The patient tolerated the procedure well. No complications. Findings: Small volume left effusion. Impression: Successful ultrasound-guided left thoracentesis with removal of 175 mL of fluid. Samples were submitted for evaluation if requested by the referring clinician. This report was generated with voice-recognition technology. Errors in control and recovery combat rescue can occur. Please interpret accordingly and contact a radiologist if there are any questions regarding the report. Signed by: Dr. Earl Gottlieb M.D. on 06/25/2017 3:18 PM
--- NOTE | 2017-06-25 15:25 | Diagnostic Imaging Report ---
PROCEDURE:CHEST SINGLE (PORTABLE) TECHNIQUE:Portable AP chest INDICATION:Left thoracentesis COMPARISON:[facility], DX, CHEST 2 VIEWS, 06/25/2017, 5:00. FINDINGS: See conclusion. CONCLUSION: 1. Interval left thoracentesis with improvement of the small left pleural effusion. No pneumothorax. 2. Unchanged left hemidiaphragm elevation. 3. Stable small right pleural effusion, pulmonary edema and cardiomegaly. 4. Single lead pacemaker of the left hemithorax; lead intact. Intact midline sternotomy wires and postoperative sequela of CABG. Dictated by: Earl Gottlieb M.D. on 06/25/2017 at 15:33 Electronically approved by: Earl Gottlieb M.D. on 06/25/2017 at 15:33
[2017-06-25 15:54] LABS: BODY FLUID APPEARANCE TURBID; BODY FLUID COLOR RED; BODY FLUID TYPE PLEURAL
[2017-06-25 15:55] LABS: RBC,BODY FLUID 8257 cells/uL; WBC,BODY FLUID 257 cells/uL
[2017-06-25 17:30] LABS: LYMPHOCYTES,BODY FLUID 74 %; MONO/MACROPHG,BODY FLUID 1 %; NEUTROPHILS,BODY FLUID 25 %
[2017-06-25] MEDS: FINASTERIDE 5 MG TAB PO SCH (20:04)
[2017-06-25] MEDS: SIMVASTATIN 20 MG TAB PO SCH (20:04)
[2017-06-26] VITALS (51 sets, daily range): BP systolic 113–178; BP diastolic 62–113
[2017-06-26] MEDS: PIPER-TAZ 3.375 GM 50 ML IV SCH ×3 (05:01→21:50)
[2017-06-26] MEDS: CLONIDINE HCL 0.1 MG TAB PO PRN (05:02)
[2017-06-26] MEDS: METRONIDAZOLE 500MG/NS 100ML 100 ML IV SCH ×4 (06:06→23:31)
[2017-06-26 06:38] LABS: ANION GAP 9.4 mmol/L (8-16); BLOOD UREA NITROGEN 28 mg/dL (7-26); BUN/CREATININE RATIO 29 (6-25); CALCIUM 8.8 mg/dL (8.4-10.2); CHLORIDE 99 mmol/L (98-107); CREATININE, SERUM 0.95 mg/dL (0.72-1.25); EST GLOMERULAR FILTRATION RATE > 60 ML/MIN (60-); GLUCOSE 105 mg/dL (74-118); POTASSIUM 3.4 mmol/L (3.5-5.1); SODIUM 148 mmol/L (136-145)
[2017-06-26 06:59] LABS: CARBON DIOXIDE 43 mmol/L (22-29)
[2017-06-26] MEDS: PANTOPRAZOLE SOD 40 MG TABEC PO SCH (07:30)
--- NOTE | 2017-06-26 07:59 | Diagnostic Imaging Report ---
PROCEDURE:CHEST 2 VIEWS TECHNIQUE:AP chest with bilateral decubitus views. INDICATION:Pleural effusion post thoracentesis COMPARISON:None. FINDINGS: See conclusion. CONCLUSION: 1. Stable left hemidiaphragm elevation. Consider postoperative left hemidiaphragm paralysis in the setting of CABG. 2. No sizable pleural effusion. No pneumothorax. 3. Stable cardiomegaly and pulmonary edema. 4. Unchanged single lead pacemaker over the left hemithorax. Stable intact midline sternotomy wires. 5. Overall, no interval change from June 25, 2017 at 1500 hrs. Dictated by: Earl Gottlieb M.D. on 06/26/2017 at 8:07 Electronically approved by: Earl Gottlieb M.D. on 06/26/2017 at 8:07
[2017-06-26] MEDS: VALSARTAN 160 MG TAB PO SCH (09:00)
[2017-06-26] MEDS ORDERED: FUROSEMIDE 20 MG TAB PO SCH (09:00)
[2017-06-26] MEDS: PRIMIDONE 50 MG TAB PO SCH (09:00)
[2017-06-26] MEDS: ATENOLOL 50 MG TAB PO SCH ×2 (09:00→17:00)
[2017-06-26] MEDS: ENOXAPARIN 30 MG/0.3 ML SYR SC SCH ×2 (09:00→21:50)
[2017-06-26] MEDS: LACTULOSE SYRUP 20 GM/30 ML UDC PO SCH ×2 (09:00→17:00)
[2017-06-26] MEDS ORDERED: POTASSIUM CHLORIDE 20 MEQ TAB CR PO STA (09:20)
[2017-06-26] MEDS: DEXTROSE 5% 1000ML 1,000 ML IV SCH ×3 (09:30→21:44)
[2017-06-26] MEDS: LEVOFLOXACIN 500MG/D5W 100ML 100 ML IV SCH (12:30)
[2017-06-26] MEDS ORDERED: ACETAZOLAMIDE 500 MG CAP PO SCH (14:00)
[2017-06-26 14:01] LABS: ABG PH 7.37 (7.31-7.41)
[2017-06-26 14:02] LABS: ABG HCO3 46 mmol/L (23-28); ABG PCO2 78 mmHg (41-51); ABG PO2 169 mmHg (80-105)
[2017-06-26] MEDS ORDERED: POTASSIUM CHLORIDE 20 MEQ TAB CR PO NR (15:00)
[2017-06-26] MEDS ORDERED: SODIUM CHLORIDE 0.9% 250ML 250 ML ONE ×2 (15:05→18:19)
--- NOTE | 2017-06-26 16:19 | Diagnostic Imaging Report ---
PROCEDURE:X-RAY MODIFIED BARIUM SWALLOW COMPARISON:None. INDICATIONS:Dysphagia. DISCUSSION:Fluoroscopic examination was performed in conjunction with speech pathology, during swallowing of a variety of thin and thick liquid consistencies. Examination showed no premature spillage over the base of the tongue. Laryngeal penetration was noted with all consistencies. Aspiration was seen within liquids via cup sip and trace aspiration with laryngeal residue from old consistencies. Vallecular and piriform sinus residue was noted with all consistencies. CONCLUSION:Severe dysphagia characterized by laryngeal residue, penetration and aspiration of all consistencies. Please see the report from speech pathology for complete details. Aidan Pascal M.D. Dictated by: Aidan Pascal M.D. on 06/26/2017 at 16:28 Electronically approved by: Aidan Pascal M.D. on 06/26/2017 at 16:28
[2017-06-26] MEDS ORDERED: POTASSIUM CHL 40 MEQ in SODIUM CHLORIDE 0.9% 250ML 250 ML IV ONE (20:00)
[2017-06-26] MEDS: CLONIDINE HCL 0.2 MG/24 HR 1 EA PATCH TOP SCH (21:51)
[2017-06-27] VITALS (59 sets, daily range): BP systolic 97–191; BP diastolic 67–136
[2017-06-27] MEDS: METOPROLOL TARTRATE INJ 1 MG/ML VIAL IV PRN (03:13)
[2017-06-27] MEDS: METRONIDAZOLE 500MG/NS 100ML 100 ML IV SCH ×4 (06:09→23:06)
[2017-06-27 06:35] LABS: ALANINE AMINOTRANSFERASE 23 IU/L (0-55); ALBUMIN 2.5 g/dL (3.5-5.0); ALBUMIN/GLOBULIN RATIO 0.8 (0.8-2.0); ALKALINE PHOSPHATASE 27 IU/L (40-150); ANION GAP 9.6 mmol/L (8-16); BLOOD UREA NITROGEN 21 mg/dL (7-26); BUN/CREATININE RATIO 26 (6-25); CALCIUM 8.7 mg/dL (8.4-10.2); CARBON DIOXIDE 39 mmol/L (22-29); CHLORIDE 98 mmol/L (98-107); EST GLOMERULAR FILTRATION RATE > 60 ML/MIN (60-); GLUCOSE 125 mg/dL (74-118); POTASSIUM 3.6 mmol/L (3.5-5.1); SODIUM 143 mmol/L (136-145)
[2017-06-27] MEDS: PIPER-TAZ 3.375 GM 50 ML IV SCH ×2 (07:03→14:49)
[2017-06-27] MEDS: FUROSEMIDE INJ 10 MG/ML 2 ML VIAL IV SCH (09:51)
[2017-06-27] MEDS: ENOXAPARIN 30 MG/0.3 ML SYR SC SCH ×2 (09:51→20:49)
--- NOTE | 2017-06-27 10:50 | Diagnostic Imaging Report ---
PROCEDURE:DIAPHRAGMATIC FLUOROSCOPY (SNIFF TEST) TECHNIQUE:Multiple fluoroscopic spot images were acquired of the bilateral lung bases during the dynamic evaluation of the diaphragm with deep inspiration and expiration. 0.3 minutes. 10.8 mGy INDICATION:Elevated left hemidiaphragm. COMPARISON:None. FINDINGS:The left hemidiaphragm is elevated. Small bilateral pleural effusions are noted. Minimal movement of the diaphragm is noted bilaterally with deep inspiration and expiration. The left hemidiaphragm depth of motion was comparable to that of the right hemidiaphragm. CONCLUSION: Elevation of the left hemidiaphragm. Limited excursion of the right and left hemidiaphragms with deep inspiration. Dictated by: Ernie Stout M.D. on 06/27/2017 at 10:59 Electronically approved by: Ernie Stout M.D. on 06/27/2017 at 10:59
[2017-06-27] MEDS ORDERED: ACETAZOLAMIDE 500 MG CAP PO ONE (11:20)
--- NOTE | 2017-06-27 13:26 | Diagnostic Imaging Report ---
Examination: CT BRAIN WITHOUT CONTRAST History:Difficulty swallowing. Comparison studies:None Technique: Axial images were obtained from the skull base to the vertex. Coronal and sagittal images reconstructed from the axial data. Intravenous contrast: None Findings: Significantly limited study due to motion artifact. There is streak artifact at the skull base limiting evaluation of the brainstem. Scalp: No abnormalities. Bones: No fractures, blastic or lytic lesions. Brain sulci: Mild volume loss for age. 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 Extra-axial space: No abnormalities. Parenchyma: There are confluent areas of hypoattenuation in the periventricular and subcortical white matter, nonspecific. A cortical based encephalomalacia of the lingual gyrus of the right occipital lobe. No masses, hemorrhage, or acute cortical based vascular insults. Sellar/suprasellar region: No abnormalities. Craniocervical junction: Patent foramen magnum. No Chiari one malformation. Incidental findings: Partially visualized right maxillary sinus retention cyst. Impression: 1. Despite limitation, no large acute intraparenchymal and extra-axial hemorrhage or large acute cortical based infarct. 2. Mild chronic microvascular ischemic change. 3. Mild volume loss. 4. 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 Signed by: Dr. Rupal Diaz M.D. on 06/27/2017 1:23 PM
[2017-06-27] MEDS: LEVOFLOXACIN 500MG/D5W 100ML 100 ML IV SCH (14:49)
[2017-06-27 15:27] LABS: ABG PH 7.42 (7.31-7.41)
[2017-06-27 15:28] LABS: ABG PCO2 69 mmHg (41-51)
[2017-06-27 15:31] LABS: ABG HCO3 44 mmol/L (23-28); ABG PO2 154 mmHg (80-105)
[2017-06-27] MEDS: DEXTROSE 5% 1000ML 1,000 ML IV SCH (16:30)
[2017-06-28] VITALS: BP 167/97
[2017-06-28 04:00] VITALS: BP 122/97
[2017-06-28 06:59] LABS: INR 1.17; PARTIAL THROMBOPLASTIN TIME 34.7 seconds (23.8-35.5); PROTHROMBIN TIME 15.5 seconds (11.9-14.5)
[2017-06-28 07:15] LABS: ANION GAP 10.3 mmol/L (8-16); BLOOD UREA NITROGEN 18 mg/dL (7-26); BUN/CREATININE RATIO 24 (6-25); CALCIUM 8.8 mg/dL (8.4-10.2); CARBON DIOXIDE 34 mmol/L (22-29); CHLORIDE 97 mmol/L (98-107); CREATININE, SERUM 0.76 mg/dL (0.72-1.25); EST GLOMERULAR FILTRATION RATE > 60 ML/MIN (60-); GLUCOSE 110 mg/dL (74-118); POTASSIUM 3.3 mmol/L (3.5-5.1); SODIUM 138 mmol/L (136-145)
[2017-06-28 07:55] VITALS: BP 143/94
[2017-06-28] MEDS ORDERED: ENOXAPARIN 30 MG/0.3 ML SYR SC SCH (09:00)
--- NOTE | 2017-06-28 09:30 | Diagnostic Imaging Report ---
EXAM: XR CHEST 2 VIEWS DATE: 06/28/2017 6:00 AM INDICATION: Pneumonia COMPARISON: None FINDINGS: Lines and Tubes: Single lead left chest wall pacemaker with lead overlying right ventricle. Sternotomy wires present. Heart and Mediastinum: Mild to moderate cardiomegaly present. Lungs and Pleura: Moderate elevation left hemidiaphragm. Blunting costophrenic sulci suggest small amounts of pleural fluid. Mild scattered airspace opacities present. Minimal superimposed right basilar opacity present. Bones and Soft Tissues: Residual contrast in the colon. IMPRESSION: 1. Cardiomegaly with mild interstitial prominence suggesting mild edema. 2. Small amounts of pleural fluid bilaterally. 3. Minimal opacity right lung base could represent atelectasis or pneumonia. 4. Moderate elevation left diaphragm. Signed by: Dr. Dimitry Whitman MD on 06/28/2017 9:26 AM
[2017-06-28] MEDS: FUROSEMIDE INJ 10 MG/ML 2 ML VIAL IV SCH (09:48)
[2017-06-28] MEDS ORDERED: POTASSIUM CHLORIDE 20 MEQ TAB CR PO ONE (11:15)
[2017-06-28] MEDS ORDERED: PHYTONADIONE 10MG/ML 20 MG in SODIUM CHLORIDE 0.9% 50ML 50 ML SC ONE (12:00)
[2017-06-28] MEDS: DEXTROSE 5% 1000ML 1,000 ML IV SCH ×2 (12:30→23:41)
--- NOTE | 2017-06-28 14:00 | Operative Report ---
DATE OF PROCEDURE: June 28, 2017 REFERRING PHYSICIAN: Dr. Daniel Malik. PROCEDURE PERFORMED: Esophagogastroduodenoscopy with percutaneous endoscopic gastrotomy tube placement. INDICATIONS FOR PROCEDURE: Abnormal modified barium swallow, for EGD/PEG tube placement. MEDICATION: Patient was done under MAC. Please see anesthesiologist's note. PROCEDURE: With the patient in the supine position, the flexible fiberoptic Olympus gastroscope was introduced into the esophagus under direct visualization without any difficulty. The scope was then advanced with ease into the stomach, and mucosa overlying the antrum and the body revealed some patchy areas of erythema. After delineation of a safe entry point per external digital palpation and transabdominal illumination, PEG tube insertion was carried out in the usual fashion. The scope was subsequently withdrawn after documenting a good positioning of the intragastric bumper. Patient tolerated the procedure well. IMPRESSION: 1. Mild distal esophagitis. 2. Gastritis. 3. Percutaneous endoscopic gastrotomy tube placement carried out in the usual fashion. Patient tolerated the procedure well. PLAN: G-tube to drain to gravity times 24 hours in a Mejia bag, then can use. Job#: [id number] EV cc:DANIEL MALIK MD
[2017-06-28] MEDS: LEVOFLOXACIN 500MG/D5W 100ML 100 ML IV SCH (14:43)
[2017-06-28] MEDS: POTASSIUM CHLORIDE 20MEQ/100ML 300 ML IV ONE ×2 (15:30→17:00)
[2017-06-28 17:34] VITALS: BP 162/93
[2017-06-28] MEDS ORDERED: LIDOCAINE HCL 2% LOCAL INJ 5 ML SDV VIAL INJ ONE (18:17)
[2017-06-28] MEDS ORDERED: PROPOFOL IV EMULSION 10 MG/ML 20 ML VIAL ONE (18:17)
[2017-06-28] MEDS ORDERED: SODIUM CHLORIDE 0.9% 250ML 250 ML ONE (18:28)
[2017-06-28 20:12] VITALS: BP 147/86
[2017-06-28 23:51] VITALS: BP 152/92
[2017-06-29 04:23] VITALS: BP 139/77
[2017-06-29 07:31] LABS: HEMATOCRIT 37.2 % (38.2-49.6); HEMOGLOBIN 12.5 g/dL (14.0-18.0)
[2017-06-29 07:45] VITALS: BP 150/77
[2017-06-29] MEDS: FUROSEMIDE INJ 10 MG/ML 2 ML VIAL IV SCH (07:50)
[2017-06-29 12:19] VITALS: BP 135/68
[2017-06-29] MEDS: LEVOFLOXACIN 500MG/D5W 100ML 100 ML IV SCH (12:35)
[2017-06-29] MEDS ORDERED: POTASSIUM CHLORIDE 20 MEQ TAB CR PO ONE (12:45)
[2017-06-29] MEDS: METRONIDAZOLE 500MG/NS 100ML 100 ML IV SCH ×2 (14:22→21:51)
[2017-06-29 16:08] VITALS: BP 142/83
[2017-06-29 20:00] VITALS: BP 137/90
[2017-06-29] MEDS: DEXTROSE 5% 1000ML 1,000 ML IV SCH (20:56)
[2017-06-30] VITALS: BP 121/85
[2017-06-30 04:00] VITALS: BP 121/85
[2017-06-30] MEDS: METRONIDAZOLE 500MG/NS 100ML 100 ML IV SCH ×3 (06:17→22:22)
[2017-06-30 07:15] LABS: BASOPHILS % 0.2 % (0.0-1.0); EOSINOPHILS # (AUTO) 0.1 (0.0-0.4); EOSINOPHILS % 2.1 % (0.0-6.0); HEMATOCRIT 37.7 % (38.2-49.6); HEMOGLOBIN 12.4 g/dL (14.0-18.0); LYMPHOCYTES # (AUTO) 0.8 (1.0-3.2); LYMPHOCYTES % 13.7 % (18.0-39.1); MEAN CORPUSCULAR HEMOGLOBIN 29.5 pg (28-32); MEAN CORPUSCULAR HGB CONC 32.9 g/dL (31-35); MEAN CORPUSCULAR VOLUME 89.8 fL (81-99); MONOCYTES # (AUTO) 0.6 (0.2-0.8); MONOCYTES % 10.2 % (4.4-11.3); NEUTROPHILS # (AUTO) 4.2 (2.1-6.9); NEUTROPHILS % 73.3 % (38.7-80.0); PLATELET COUNT 138 x10e3/uL (140-360); RED CELL DISTRIBUTION WIDTH 13.8 % (11.7-14.4)
[2017-06-30 07:27] VITALS: BP 128/74
[2017-06-30 08:08] LABS: ALANINE AMINOTRANSFERASE 42 IU/L (0-55); ALBUMIN 2.6 g/dL (3.5-5.0); ALBUMIN/GLOBULIN RATIO 0.9 (0.8-2.0); ALKALINE PHOSPHATASE 35 IU/L (40-150); ANION GAP 10.9 mmol/L (8-16); BLOOD UREA NITROGEN 20 mg/dL (7-26); BUN/CREATININE RATIO 27 (6-25); CARBON DIOXIDE 34 mmol/L (22-29); CHLORIDE 99 mmol/L (98-107); CREATININE, SERUM 0.73 mg/dL (0.72-1.25); EST GLOMERULAR FILTRATION RATE > 60 ML/MIN (60-); GLUCOSE 146 mg/dL (74-118); POTASSIUM 3.9 mmol/L (3.5-5.1); SODIUM 140 mmol/L (136-145)
[2017-06-30] MEDS: FUROSEMIDE INJ 10 MG/ML 2 ML VIAL IV SCH (08:20)
[2017-06-30 09:52] LABS: ABG HCO3 37 mmol/L (23-28); ABG PCO2 60 mmHg (41-51); ABG PO2 152 mmHg (80-105)
[2017-06-30] MEDS: LEVOFLOXACIN 500MG/D5W 100ML 100 ML IV SCH (11:37)
[2017-06-30 20:00] VITALS: BP 138/75
[2017-06-30] MEDS: DEXTROSE 5% 1000ML 1,000 ML IV SCH (20:00)
[2017-06-30] MEDS ORDERED: MAGNESIUM HYDROXIDE 30 ML UDC PEG PRN (22:45)
[2017-06-30] MEDS ORDERED: MAGNESIUM/ALUMINUM/SIMETHICONE 30 ML UDC PEG PRN (22:45)
[2017-06-30] MEDS ORDERED: MECLIZINE HCL 12.5 MG TAB PEG PRN (22:45)
[2017-06-30] MEDS ORDERED: GUAIFENESIN 200 MG/10 ML UDC PEG PRN (22:45)
[2017-07-01 01:01] VITALS: BP 135/87
[2017-07-01] MEDS ORDERED: ACETAMINOPHEN 325 MG TAB PEG PRN (02:30)
[2017-07-01] MEDS: METRONIDAZOLE 500MG/NS 100ML 100 ML IV SCH ×3 (06:00→21:30)
[2017-07-01 06:13] VITALS: BP 108/84
[2017-07-01 06:16] LABS: HEMATOCRIT 36.4 % (38.2-49.6); HEMOGLOBIN 12.1 g/dL (14.0-18.0)
[2017-07-01 06:55] LABS: ALANINE AMINOTRANSFERASE 35 IU/L (0-55); ALBUMIN 2.5 g/dL (3.5-5.0); ALBUMIN/GLOBULIN RATIO 0.8 (0.8-2.0); ALKALINE PHOSPHATASE 34 IU/L (40-150); ANION GAP 8.8 mmol/L (8-16); BLOOD UREA NITROGEN 21 mg/dL (7-26); BUN/CREATININE RATIO 29 (6-25); CALCIUM 8.7 mg/dL (8.4-10.2); CARBON DIOXIDE 35 mmol/L (22-29); CHLORIDE 99 mmol/L (98-107); CREATININE, SERUM 0.73 mg/dL (0.72-1.25); EST GLOMERULAR FILTRATION RATE > 60 ML/MIN (60-); GLUCOSE 151 mg/dL (74-118); POTASSIUM 3.8 mmol/L (3.5-5.1); SODIUM 139 mmol/L (136-145)
[2017-07-01] MEDS ORDERED: PANTOPRAZOLE SOD 40 MG TABEC PO SCH (07:30)
[2017-07-01 09:11] VITALS: BP 137/79
[2017-07-01] MEDS: PRIMIDONE 50 MG TAB PEG SCH (09:45)
[2017-07-01] MEDS: FUROSEMIDE INJ 10 MG/ML 2 ML VIAL IV SCH (09:45)
[2017-07-01] MEDS: LACTULOSE SYRUP 20 GM/30 ML UDC PEG SCH ×2 (09:45→17:53)
[2017-07-01] MEDS: PANTOPRAZOLE SODIUM 40 MG SUSPDR.PKT PEG SCH (09:46)
[2017-07-01] MEDS: VALSARTAN 160 MG TAB PEG SCH (09:46)
[2017-07-01] MEDS: ATENOLOL 50 MG TAB PEG SCH ×2 (09:46→17:53)
[2017-07-01 12:58] VITALS: BP 140/73
[2017-07-01] MEDS: LEVOFLOXACIN 500MG/D5W 100ML 100 ML IV SCH (13:11)
--- NOTE | 2017-07-01 14:07 | Progress Note ---
DATE: July 01, 2017 PULMONARY PROGRESS NOTE The patient is more alert and more conversant. He reports some improvement. He is receiving enteral feedings through the feeding tube. He is continuing to receive IV antibiotics. OBJECTIVE VITALS: He is afebrile. Saturation is 95% on 2 L. Blood pressure is 137/79 and the heart rate is 103. HEENT: Shows no facial swelling or erythema. The nasal mucosa is normal. The oropharynx is normal. LYMPHATICS: Shows no submandibular, cervical or supraclavicular adenopathy. CARDIAC: Reveals a regular rate and rhythm with a normal S1 and S2. LUNGS: Auscultation of the lungs reveals rhonchus breath sounds bilaterally. There is no wheezing. ABDOMEN: Soft and nontender. There is a feeding tube in place. EXTREMITIES: No leg edema or calf tenderness. There is no cyanosis or clubbing. IMPRESSION 1. Aspiration pneumonitis. 2. Dysphagia and recurrent aspiration. 3. Poor diaphragmatic excursion on fluoroscopy testing of unclear etiology. 4. Enlarged ventricles on computerized tomography scan, possibly suggestive of normal pressure hydrocephalus. 5. Tremulousness and bradykinesia that was previously evaluated by Dr. Cuevas of neurology. This may be consistent with Parkinson disease. PLAN 1. Continue the IV antibiotics. 2. Speech therapy and enteral feedings. 3. Physical therapy. 4. Neurosurgical evaluation for normal pressure hydrocephalus. 5. The patient will probably require some type of rehab. Job#: [id number] JEANETTE
[2017-07-01 16:22] VITALS: BP 126/60
[2017-07-01] MEDS: SIMVASTATIN 20 MG TAB PEG SCH (20:27)
[2017-07-01] MEDS: FINASTERIDE 5 MG TAB PEG SCH (20:27)
[2017-07-01] MEDS: DEXTROSE 5% 1000ML 1,000 ML IV SCH (20:27)
[2017-07-01 21:18] VITALS: BP 108/51
--- NOTE | 2017-07-01 23:43 | Consultation ---
DATE OF CONSULTATION: July 01, 2017 REASON FOR CONSULTATION: Rule out normal pressure hydrocephalus. The patient is a 77-year-old man who had been doing quite well from a neurological standpoint, walking, driving, with normal mentation. Two weeks ago he developed abdominal pain, diarrhea and fever, and was admitted. He has had extensive interventions since then and has gradually improved from a GI standpoint. He has had trouble swallowing and recently underwent esophageal dilatation. He is now recovering from this ordeal and is returning back to his neurological baseline. On examination, he is alert and oriented x3. Memory is intact and speech is fluent. Cranial nerves are intact. Motor strength is symmetric although he is diffusely weak and debilitated. CT of the brain was reviewed. This reveals diffuse brain atrophy with mild ventriculomegaly which is completely in proportion to the extent of cerebral atrophy. IMPRESSION: No clinical or radiographic evidence of normal pressure hydrocephalus. The patient's ventriculomegaly is mild and is in proportion to the degree of his cerebral atrophy. He does not require any neurosurgical intervention. Job#: [id number]
[2017-07-02 00:39] VITALS: BP 135/74
[2017-07-02 06:00] VITALS: BP 138/80
[2017-07-02] MEDS: METRONIDAZOLE 500MG/NS 100ML 100 ML IV SCH ×3 (06:08→22:47)
[2017-07-02 07:00] LABS: HEMATOCRIT 34.2 % (38.2-49.6); HEMOGLOBIN 11.4 g/dL (14.0-18.0)
[2017-07-02 07:22] LABS: ALANINE AMINOTRANSFERASE 28 IU/L (0-55); ALBUMIN 2.4 g/dL (3.5-5.0); ALBUMIN/GLOBULIN RATIO 0.8 (0.8-2.0); ALKALINE PHOSPHATASE 37 IU/L (40-150); ANION GAP 9.7 mmol/L (8-16); BLOOD UREA NITROGEN 24 mg/dL (7-26); BUN/CREATININE RATIO 34 (6-25); CALCIUM 8.6 mg/dL (8.4-10.2); CARBON DIOXIDE 34 mmol/L (22-29); CHLORIDE 98 mmol/L (98-107); CREATININE, SERUM 0.71 mg/dL (0.72-1.25); EST GLOMERULAR FILTRATION RATE > 60 ML/MIN (60-); GLUCOSE 145 mg/dL (74-118); POTASSIUM 3.7 mmol/L (3.5-5.1); SODIUM 138 mmol/L (136-145)
[2017-07-02 08:00] VITALS: BP 131/70
[2017-07-02] MEDS: NYSTATIN 15 GM POWDER UD BTL TOP SCH ×2 (09:00→17:00)
[2017-07-02] MEDS: PRIMIDONE 50 MG TAB PEG SCH (09:00)
[2017-07-02] MEDS: DIPHENOXYLATE/ATROPINE TAB PO SCH ×2 (09:00→17:00)
[2017-07-02] MEDS: VALSARTAN 160 MG TAB PEG SCH (09:00)
[2017-07-02] MEDS: LACTULOSE SYRUP 20 GM/30 ML UDC PEG SCH ×2 (09:00→17:00)
[2017-07-02] MEDS: PANTOPRAZOLE SODIUM 40 MG SUSPDR.PKT PEG SCH (09:00)
[2017-07-02] MEDS: FUROSEMIDE INJ 10 MG/ML 2 ML VIAL IV SCH (09:00)
[2017-07-02] MEDS: ATENOLOL 50 MG TAB PEG SCH ×2 (09:00→17:00)
[2017-07-02 12:00] VITALS: BP 118/72
[2017-07-02] MEDS: LEVOFLOXACIN 500MG/D5W 100ML 100 ML IV SCH (12:30)
[2017-07-02 16:00] VITALS: BP 100/69
[2017-07-02] MEDS: DEXTROSE 5% 1000ML 1,000 ML IV SCH (16:30)
[2017-07-02 20:00] VITALS: BP 93/61
[2017-07-02] MEDS: FINASTERIDE 5 MG TAB PEG SCH (20:26)
[2017-07-02] MEDS: SIMVASTATIN 20 MG TAB PEG SCH (20:26)
[2017-07-03] VITALS: BP 108/56
[2017-07-03 04:34] VITALS: BP 109/64
[2017-07-03] MEDS: METRONIDAZOLE 500MG/NS 100ML 100 ML IV SCH ×3 (05:13→21:36)
[2017-07-03 06:22] LABS: HEMATOCRIT 35.1 % (38.2-49.6); HEMOGLOBIN 11.5 g/dL (14.0-18.0)
[2017-07-03 08:00] VITALS: BP 117/57
--- NOTE | 2017-07-03 08:54 | Consultation ---
DATE OF CONSULTATION: June 28, 2017 at 9 o'clock in the morning. NEUROLOGICAL CONSULTATION Patient of Dr. Daniel Malik. REASON FOR CONSULTATION: Abnormal CT scan. This 77-year-old male being evaluated by me in front of his with history, who was admitted because of suspicion of pancreatitis and esophageal stricture. Main complaint of generalized weakness, diffuse. He has been treated for essential tremor with Primidone 50 mg 3 times a day. PAST HISTORY: History of hypertension, hypercholesterolemia, and benign prostatic hypertrophy. The CT scan of the brain in the emergency room shows evidence of ventriculomegaly with disproportionate to the possibility of NPH. Talking to the and to the patient, he has been having no problem with balance, no problem with memory, no problem with urinary incontinence or urinary frequency. PHYSICAL EXAMINATION GENERAL: Right now, he is just feeling weak, difficult to examine him because of that, but grossly he is oriented times 3. MENTAL STATUS: Speech is clear. No dysarthria or dysphagia. CRANIAL NERVES: Pupils are both equal and reactive. The extraocular movements were full. Visual brunner were normal. MOTOR POWER: There s no gross weakness in upper or lower extremities. No focal weakness, proximal or distal muscles. Plantar stimulation is down bilaterally. Patient looks tired and weak. IMPRESSIONS 1. Questionable pancreatitis. 2. Nausea and vomiting and generalized weakness, undetermined etiology. 3. History of hypertension. 4. History of pacemaker. 5. Atrial fibrillation. PLAN: We will discuss with attending physician, but the patient has no history of trial of NPH and the seems to make no major difference in relation to the mild ventricular dilatation. We will follow. Job#: [id number] CF
[2017-07-03] MEDS: LACTULOSE SYRUP 20 GM/30 ML UDC PEG SCH ×2 (09:00→16:27)
[2017-07-03] MEDS: PANTOPRAZOLE SODIUM 40 MG SUSPDR.PKT PEG SCH (10:41)
[2017-07-03] MEDS: VALSARTAN 160 MG TAB PEG SCH (10:41)
[2017-07-03] MEDS: PRIMIDONE 50 MG TAB PEG SCH (10:41)
[2017-07-03] MEDS: FUROSEMIDE INJ 10 MG/ML 2 ML VIAL IV SCH (10:41)
[2017-07-03] MEDS: ATENOLOL 50 MG TAB PEG SCH ×2 (10:42→16:27)
[2017-07-03] MEDS: DIPHENOXYLATE/ATROPINE TAB PO SCH ×3 (10:42→21:36)
[2017-07-03] MEDS: NYSTATIN 15 GM POWDER UD BTL TOP SCH ×2 (11:57→16:28)
[2017-07-03 12:00] VITALS: BP 106/56
[2017-07-03] MEDS: DEXTROSE 5% 1000ML 1,000 ML IV SCH (12:30)
[2017-07-03] MEDS: LEVOFLOXACIN 500MG/D5W 100ML 100 ML IV SCH (12:55)
[2017-07-03 16:00] VITALS: BP 105/54
[2017-07-03 20:00] VITALS: BP 123/64
[2017-07-03] MEDS: FINASTERIDE 5 MG TAB PEG SCH (21:36)
[2017-07-03] MEDS: SIMVASTATIN 20 MG TAB PEG SCH (21:36)
[2017-07-03] MEDS: CLONIDINE HCL 0.2 MG/24 HR 1 EA PATCH TOP SCH (21:36)
[2017-07-04] VITALS: BP 117/70
[2017-07-04 04:00] VITALS: BP 145/64
[2017-07-04] MEDS: METRONIDAZOLE 500MG/NS 100ML 100 ML IV SCH ×3 (05:11→21:54)
[2017-07-04 06:24] LABS: HEMATOCRIT 33.3 % (38.2-49.6); HEMOGLOBIN 10.9 g/dL (14.0-18.0)
[2017-07-04] MEDS: DEXTROSE 5% 1000ML 1,000 ML IV SCH (08:30)
[2017-07-04 09:00] VITALS: BP 134/68
[2017-07-04] MEDS: PANTOPRAZOLE SODIUM 40 MG SUSPDR.PKT PEG SCH (09:00)
[2017-07-04] MEDS: VALSARTAN 160 MG TAB PEG SCH (09:00)
[2017-07-04] MEDS: LACTULOSE SYRUP 20 GM/30 ML UDC PEG SCH ×2 (09:00→16:30)
[2017-07-04] MEDS: PRIMIDONE 50 MG TAB PEG SCH (09:00)
[2017-07-04] MEDS: ATENOLOL 50 MG TAB PEG SCH ×2 (09:00→16:30)
[2017-07-04] MEDS: DIPHENOXYLATE/ATROPINE TAB PO SCH ×3 (09:00→21:54)
[2017-07-04] MEDS: FUROSEMIDE INJ 10 MG/ML 2 ML VIAL IV SCH (09:00)
[2017-07-04] MEDS: NYSTATIN 15 GM POWDER UD BTL TOP SCH ×2 (09:00→16:30)
[2017-07-04 12:43] VITALS: BP 111/57
[2017-07-04 12:56] LABS: INR 1.16; PROTHROMBIN TIME 15.4 seconds (11.9-14.5)
[2017-07-04 16:31] VITALS: BP 110/67
[2017-07-04] MEDS ORDERED: WARFARIN SOD 2.5 MG TAB PO SCH (17:00)
[2017-07-04 20:00] VITALS: BP 119/60
[2017-07-04] MEDS: FINASTERIDE 5 MG TAB PEG SCH (21:54)
[2017-07-04] MEDS: SIMVASTATIN 20 MG TAB PEG SCH (21:54)
[2017-07-05] VITALS: BP 125/60
[2017-07-05] MEDS: DEXTROSE 5% 1000ML 1,000 ML IV SCH (05:01)
[2017-07-05] MEDS: METRONIDAZOLE 500MG/NS 100ML 100 ML IV SCH (05:30)
[2017-07-05 07:21] LABS: HEMATOCRIT 36.3 % (38.2-49.6); HEMOGLOBIN 11.8 g/dL (14.0-18.0)
[2017-07-05 07:39] LABS: INR 1.16; PROTHROMBIN TIME 15.4 seconds (11.9-14.5)
[2017-07-05 08:00] VITALS: BP 131/64
[2017-07-05] MEDS: LACTULOSE SYRUP 20 GM/30 ML UDC PEG SCH (09:00)
[2017-07-05] MEDS: ATENOLOL 50 MG TAB PEG SCH (09:00)
[2017-07-05] MEDS: FUROSEMIDE INJ 10 MG/ML 2 ML VIAL IV SCH (09:00)
[2017-07-05] MEDS: NYSTATIN 15 GM POWDER UD BTL TOP SCH (09:00)
[2017-07-05] MEDS: PRIMIDONE 50 MG TAB PEG SCH (09:00)
[2017-07-05] MEDS: DIPHENOXYLATE/ATROPINE TAB PO SCH (09:00)
[2017-07-05] MEDS: VALSARTAN 160 MG TAB PEG SCH (09:00)
[2017-07-05] MEDS: PANTOPRAZOLE SODIUM 40 MG SUSPDR.PKT PEG SCH (09:00)
== END 2017-07-05 13:38 | DRG 438 ==
LOC: ER 19:08 → ERHOLD 06-18 01:41 → IMCU 06-18 02:27 → MED/SURG3 06-18 10:49 → ICU 06-24 10:33 → IMCU 06-27 23:40 → MED/SURG2 06-30 23:33
PROVIDERS: ADMIT Internal Medicine Cardiovascular Disease; ATTEND Internal Medicine Cardiovascular Disease
PROC: 0DB78ZX Excision of Stomach, Pylorus, Via Natural or Artificial Opening Endoscopic, Diagnostic (ICD-10-PCS; 2017-06-23 17:30)
PROC: 5A09357 Assistance with Respiratory Ventilation, Less than 24 Consecutive Hours, Continuous Positive Airway Pressure (ICD-10-PCS; 2017-06-24)
PROC: 0W9B3ZX Drainage of Left Pleural Cavity, Percutaneous Approach, Diagnostic (ICD-10-PCS; 2017-06-25)
PROC: 0DH63UZ Insertion of Feeding Device into Stomach, Percutaneous Approach (ICD-10-PCS; principal; 2017-06-28 12:35)
DX: K85.90 Acute pancreatitis without necrosis or infection, unspecified (principal); J69.0 Pneumonitis due to inhalation of food and vomit; J96.22 Acute and chronic respiratory failure with hypercapnia; Q79.1 Other congenital malformations of diaphragm; E87.0 Hyperosmolality and hypernatremia; R13.10 Dysphagia, unspecified; J90 Pleural effusion, not elsewhere classified; I85.00 Esophageal varices without bleeding; J44.1 Chronic obstructive pulmonary disease with (acute) exacerbation; K29.70 Gastritis, unspecified, without bleeding; K20.9 Esophagitis, unspecified; I10 Essential (primary) hypertension; I25.10 Atherosclerotic heart disease of native coronary artery without angina pectoris; Z95.1 Presence of aortocoronary bypass graft; D69.6 Thrombocytopenia, unspecified; I48.91 Unspecified atrial fibrillation; Z79.01 Long term (current) use of anticoagulants; Z88.1 Allergy status to other antibiotic agents; G47.33 Obstructive sleep apnea (adult) (pediatric); E78.5 Hyperlipidemia, unspecified; Z87.891 Personal history of nicotine dependence; G93.89 Other specified disorders of brain; G25.0 Essential tremor; I70.91 Generalized atherosclerosis; K52.9 Noninfective gastroenteritis and colitis, unspecified; Z86.010 Personal history of colon polyps; K21.9 Gastro-esophageal reflux disease without esophagitis; I73.9 Peripheral vascular disease, unspecified
CPT/HCPCS: 32555; 36415; 36600; 43239; 70450; 71010; 71020; 71250; 74177; 74230; 76000; 76705; 80048; 80053; 81001; 82140; 82150; 82270; 82550; 82553; 82805; 82948; 83605; 83615; 83630; 83690; 84157; 84484; 85014; 85018; 85025; 85610; 85730; 87040; 87045; 87070; 87086; 87177; 87205; 87400; 87449; 87493; 88305; 88312; 89051; 93005; 93306; 94660; 96367; 96376; 99284; J0456; J0696; J1650; J1940; J1956; J2001; J2250; J2405; J2543; J2930; J3430; J3480; J7030; J7050; J7070; Q9967